=== PATIENT | male | born 1970 | race Caucasian/White ===

== ENCOUNTER 2022-10-01 10:24 | Outpatient (CLI) | payer OTHER, SELFPAY | END 2022-10-01 10:25 | disposition home or self-care (01) | LOC: NFLDREF 10-02 12:27 | PROVIDERS: PCP Physician Assistant Medical; Visit Provider Physician Assistant Medical | DX: Z00.00 Encounter for general adult medical examination without abnormal findings (principal); I10 Essential (primary) hypertension; E66.9 Obesity, unspecified; M10.9 Gout, unspecified; Z13.29 Encounter for screening for other suspected endocrine disorder; Z12.5 Encounter for screening for malignant neoplasm of prostate; Z13.0 Encounter for screening for diseases of the blood and blood-forming organs and certain disorders involving the immune mechanism; Z13.1 Encounter for screening for diabetes mellitus | CPT/HCPCS: 80053; 80061; 84153; 84443 ==

== ENCOUNTER 2023-12-23 10:02 | Emergency (ER) | payer OTHER, SELFPAY ==
[2023-12-23 10:08] VITALS: BP 190/125; PULSE 103; RESP 18; TEMP 36.2; O2SAT 96; BMI 40.9
--- NOTE | 2023-12-23 11:03 | ED_ITS ---
HPI - General Adult General Date Seen: 12/23/23 Chief complaint: Abdominal Pain Stated complaint: c/o diverticulitis, high bp, sent from Time Seen by Provider: 12/23/23 11:01 History of Present Illness HPI narrative: 53-year-old male with a history of gout, hypertension, elevated BMI, history of DVT who was referred to the ER from the urgent care today for abdominal pain. He has a history of diverticulitis and was treated outpatient IV antibiotics about 3 or 4 years ago years ago. Per note from Urgent Care he was seen last year with left lower abdominal pain and was started empirically on Cipro and Flagyl for diverticulitis. He reports that his last serious bout of diverticulitis was maybe about 4 years ago. Since then he has had flares of lower abdominal pain maybe 3 or 4 times per year. He typically does not come to the doctor for them and they get better on their own. His current bout of abdominal pain will come up from sleep at about 3:00 a.m. this morning. It is present in both lower quadrants of his abdomen but more were worse on the left. It comes and goes in waves. It is associated with sweats and chills but no objectively measured fever. No nausea or vomiting. No cough. No shortness of breath. No chest pain. He has had some mucousy stool but no bloody stool. Symptoms are similar to his previous bouts of diverticulitis. He went to the urgent care and they referred him here to the ER for evaluation. The urgent care provider was worried about his blood pressure being elevated it was about 200/110. However he is in pain. He is not having any chest pain, shortness of breath, lower extremity swelling, or urinary symptoms . Related Data Previous Rx's ?Medication ?Instructions ?Recorded indomethacin 50 mg capsule 50 mg PO TID #30 caps 04/26/22 amlodipine 5 mg tablet 5 mg PO QDAY #90 tabs 10/01/22 hydrochlorothiazide 25 mg tablet 25 mg PO QDAY #90 tabs 10/01/22 losartan 100 mg tablet 100 mg PO QDAY #90 tabs 10/01/22 amoxicillin 875 mg-potassium 1 tab PO Q8H #14 tabs 12/23/23 clavulanate 125 mg tablet hydrocodone 5 mg-acetaminophen 325 1 tab PO Q4H PRN pain #14 tabs 12/23/23 mg tablet Allergies Allergy/AdvReac Type Severity Reaction Status Date / Time No Known Allergies Allergy Verified 12/23/23 12:16 PFSH PFS Medical History (Updated 12/23/23 @ 13:05 by Teja Salomon MD) Diverticulitis ?K57.92 - Diverticulitis of intestine, part unspecified, without perforation or abscess without bleeding (ICD-10) Difficulty sleeping ?G47.9 - Sleep disorder, unspecified (ICD-10) Calculus of kidney (2020) ?N20.0 - Calculus of kidney (ICD-10) Surgical History (Updated 10/01/22 @ 10:14 by Ashley Matta PA-C) History of ankle surgery ?Z98.890 - Other specified postprocedural states (ICD-10) Hx of cholecystectomy ?Z90.49 - Acquired absence of other specified parts of digestive tract (ICD- 10) History of lithotripsy ?Z98.890 - Other specified postprocedural states (ICD-10) History of laparoscopic adjustable gastric banding ?Z98.84 - Bariatric surgery status (ICD-10) History of arthroscopic knee surgery ?Z98.890 - Other specified postprocedural states (ICD-10) Family History (Updated 10/01/22 @ 10:08 by Ashley Matta PA-C) Brother Hodgkin disease, Onset Age: 30 Father High blood pressure Aortic dissection, thoracic, Onset Age: 89 Kidney disease Mother High blood pressure Aunt Lung cancer Social History (Updated 10/01/22 @ 10:09 by Ashley Matta PA-C) Narrative: - 3 kids (21 yo, 19 yo, 17 yo) Non-tobacco user Alcohol: Not daily; occasional use Denies recreational drugs Smoking Status: Never smoker Do you use any of these nicotine containing products: None Second hand tobacco smoke exposure: No How often do you have a drink containing alcohol: monthly or less How many standard drinks containing alcohol do you have on a typical day: 1 or 2 How often do you have six or more drinks on one occasion: Never AUDIT-C Alcohol total score: 1 Non-prescribed substance use: denies use Little interest or pleasure in doing things: not at all Feeling down, depressed, or hopeless: not at all service: No Exam Const: Vital Signs, click to edit/add: Vital Signs - 24 hr 12/23/23 10:08 Temperature 97.2 F L Pulse Rate [Pulse Oximeter] 103 H Respiratory Rate 18 Blood Pressure [Le ft Upper Arm] 190/125 H Pulse Oximetry 96 Oxygen Delivery Me thod Room Air Course Vital Signs Vital signs: Initial Vital Signs Temperature 97.2 F L 12/23/23 10:08 Temperature Source Temporal Artery Scan 12/23/23 10:08 Pulse Rate 103 H 12/23/23 10:08 Pulse Rhythm Regular 12/23/23 10:08 Respiratory Rate 18 12/23/23 10:08 Blood Pressure 190/125 H 12/23/23 10:08 Blood Pressure Mean 146 H 12/23/23 10:08 Blood Pressure Position Supine 12/23/23 10:08 Pulse Oximetry 96 12/23/23 10:08 Oxygen Delivery Method Room Air 12/23/23 10:08 Vital Signs Temperature 97.2 F L 12/23/23 10:08 Pulse Rate 103 H 12/23/23 10:08 Respiratory Rate 18 12/23/23 10:08 Blood Pressure 190/125 H 12/23/23 10:08 Pulse Oximetry 96 12/23/23 10:08 Oxygen Delivery Method Room Air 12/23/23 10:08 Temperature 97.2 F L 12/23/23 10:08 Pulse Rate 103 H 12/23/23 10:08 Respiratory Rate 18 12/23/23 10:08 Blood Pressure 190/125 H 12/23/23 10:08 Pulse Oximetry 96 12/23/23 10:08 Oxygen Delivery Method Room Air 12/23/23 10:08 Medical Decision Making [facility] Narrative Medical decision making narrative: Presented to the Emergency Department with bilateral lower quadrant, more on the left abdominal pain that began overnight last night, about 8 hours prior to presentation. The differential diagnosis of abdominal pain includes: Appendicitis, Bowel Obstruction, Ulcer, Ischemia, Cholecystitis, Diverticulitis, Pancreatitis, UTI, kidney stone, Enteritis/Colitis, amongst many other etiologies.Laboratory testing does not reveal a cause for the patient's pain but white count is elevated at about 13.. CT imaging does show evidence for acute uncomplicated sigmoid diverticulitis. Incidentally he has renal cyst and hepatic steatosis discussed with patient. No life threatening cause or need for emergent surgery or hospital admission is detected today. Current recommendations from treatment of acute uncomplicated diverticulitis would be supportive care without antibiotics. Discussed this with the patient. This is a change compared to the treatment which he received about 4 years ago. He is the will try to manage him supportively. Discussed appropriate diet, treating with [id number] pain medications. Prescription for [place] provided for breakthrough pain. However I will give him a prescription for Augmentin. He will start this if he is not improving within next 2-3 days. The patient also understands that if they worsen, they should return to the ER right away. I discussed the uncertainty about the diagnosis and answered the patient's questions. Abdominal pain return precautions discussed. He was also sent to the ER today by urgent care because his blood pressure readings are elevated. This contact I suspect his blood pressure is elevated due to stress and pain. No evidence for hypertensive emergency on his workup. Removed through EKG does show left ventricle hypertrophy. Discussed with the patient and has been previously known for years. He will follow up with his doctor for blood pressure recheck with the and, if necessary, medication optimization . Lab Data Labs: Lab Results 12/23/23 12/23/23 Range/Units 11:32 12:17 WBC 13.40 H (4.50-11.00) K/uL RBC 6.14 H (4.30-5.90) m/uL Hgb 17.6 H (13.5-17.5) gm/dL Hct 53.0 (37.0-53.0) % MCV 86 (80-100) fL MCH 29 (26-34) pg MCHC 33 (32-36) gm/dL RDW Coeff of [place] 14.4 (11.5-15.5) % Plt Count 298 (140-440) K/uL Neut % (Auto) 80.8 H (42.0-72.0) % Lymph % (Auto) 12.3 L (20-44) % [place] % (Auto) 5.8 (0.0-11.0) % Eos % (Auto) 0.6 (0.0-7.0) % Baso % (Auto) 0.3 (0.0-3.0) % Neut # (Auto) 10.80 H (1.7-7.0) K/uL Lymph # (Auto) 1.60 (0.90-2.90) K/uL [place] # (Auto) 0.80 (0.00-0.90) K/UL Eos # (Auto) 0.10 (0.00-0.50) K/uL Baso # (Auto) 0.00 (0.00-0.30) K/uL Abs Immat Gran (auto) 0.00 (0.00-0.30) K/uL Imm/Tot Granulo (auto) 0.2 % Sodium 138 (135-149) mmol/L Potassium 3.9 (3.6-5.1) mmol/L Chloride 100 (96-114) mmol/L Carbon Dioxide 26 (20-32) mmol/L Anion Gap 12 (7-15) mEq/L BUN 14 (7-30) mg/dL Creatinine 1.0 (0.5-1.5) mg/dL Estimated Creat Clear 89.22 Estimated GFR 91 ml/min Glucose 117 H (60-115) mg/dL Calcium 10.4 (8.4-10.6) mg/dL Troponin I < 0.01 L (0.01-0.04) ng/mL Urine Color Yellow (Yellow) Urine Appearance Clear (Clear) Urine pH 7.0 (5.0-8.5) Ur Specific [place] 1.020 (1.000-1.030) Urine Protein Trace A (Negative) Urine Glucose (UA) Negative (Negative) Urine Ketones Negative (Negative) Urine Blood Negative (Negative) Urine Nitrite Negative (Negative) Urine Bilirubin Negative (Negative) Urine Urobilinogen 0.2 (0.2-1.0) Ur Leukocyte Esterase Negative (Negative) Urine RBC 0-2 (0-2) Urine WBC 0-2 (0-5) Ur Squamous Epith Cells None (None-Few) Urine Bacteria None (None) Imaging Data CT scan - abdomen: Attestation: I have reviewed the pertinent imaging results. My impression: Sigmoid diverticulitis. I do not see any perforations. Looks like he has renal cysts. Radiologist's impression: IMPRESSION: 1. Acute diverticulitis sigmoid colon without evidence of abscess. 2. Mild hepatic steatosis. ECG Data Attestation: I personally reviewed and interpreted this ECG as follows: Interpretation: Normal sinus rhythm Rate: 86 NM: 198 QRS axis: Left axis deviation. Left ventricular hypertrophy by voltage criteria ST segment/T wave: No ST segment elevation or depression. QTc: 437 Discharge Plan Discharge Clinical Impression: Diverticulitis, Hypertension, LVH (left ventricular hypertrophy), Fatty liver Patient Disposition: Home, Self-Care Instructions: Diverticulitis (ED), Hypertension (ED) Additional Instructions: As we discussed, if you have a severe worsening symptoms, high fever, bloody stools or other worsening symptoms come back to the ER right away to be rechecked. Recent signs diff studies have shown that many cases of diverticulitis will get better with supportive care and without antibiotics. Please start taking the antibiotics if your not improving after the next 2-3 days. But remember if you get worse, come back to the ER to be recheck Use [id number] pain medications as needed for pain. If you have pain on canal neural by those medications, you can take the prescription pain killer, [place]. Use caution with [place] because it causes dizziness, drowsiness, constipation, and can be addictive. Please follow-up with your regular doctor for a blood pressure check within the next 2-3 weeks Prescriptions: New hydrocodone-acetaminophen 5-325 mg tablet 1 tab PO Q4H PRN (Reason: pain) Qty: 14 0RF amoxicillin-pot clavulanate 875-125 mg tablet 1 tab PO Q8H Qty: 14 0RF No Action indomethacin 50 mg capsule 50 mg PO TID Qty: 30 0RF Rx Instructions: administer with food or milk. Take one pill three times daily as needed for pain/swelling due to gout amlodipine 5 mg tablet 5 mg PO QDAY Qty: 90 3RF Rx Instructions: once daily for blood pressure hydrochlorothiazide 25 mg tablet 25 mg PO QDAY Qty: 90 3RF losartan 100 mg tablet 100 mg PO QDAY Qty: 90 3RF Follow Up/Referrals: Ashley Matta PA-C [Primary Care Provider] - Stand Alone Forms: [employer] Info Instructions
--- NOTE | 2023-12-23 11:20 | CRLHL7_ITS ---
For Patients: As a result of the Century Cures Act, medical imaging exams and procedure reports are released immediately into your electronic medical record. You may view this report before your referring provider. If you have questions, please contact your health care provider. INDICATION: Abdominal pain, mucus in stool TECHNIQUE: Axial images were obtained from the diaphragm to the pubic symphysis. Reformats were obtained in the coronal and sagittal plane. IV Contrast: 139 cc Isovue 370 Oral Contrast: None COMPARISON: Abdomen and pelvis CT 03/06/2021 FINDINGS: Lower chest: Unremarkable. Liver: Normal in contour with diffusely decreased density of the liver without focal intrahepatic lesion. Gallbladder and bile ducts: Status post cholecystectomy. Spleen: Unremarkable. Normal in size without mass. Pancreas: Unremarkable. No mass or inflammation. Adrenal glands: Unremarkable. No nodules. Kidneys: Symmetric renal enhancement without hydronephrosis. Bilateral renal cysts redemonstrated, largest on the left measuring 4.3 centimeters and on the right measuring 3.8 centimeters Vasculature: Unremarkable. GI tract: Status post gastric lap band. The stomach is decompressed. No dilated loops of large or small intestine. Normal appendix. Colonic diverticulosis with focal inflammation adjacent to the mid sigmoid with adjacent fascial thickening and trace free fluid. No discrete abscess. Pelvis: Status post anterior pelvic mesh. Bones: Right sacroiliac osteoarthritis. IMPRESSION: 1. Acute diverticulitis sigmoid colon without evidence of abscess. 2. Mild hepatic steatosis. Please note that all CT scans at this facility use dose modulation, iterative reconstruction, and/or weight-based dosing when appropriate to reduce radiation dose to as low as reasonably achievable. Dictated by Alex Noel MD @ 12/23/2023 12:40:42 PM (Electronically Signed)
[2023-12-23 11:44] LABS: Basophils Percent Auto 0.3 % (0.0-3.0); Eosinophils Percent Auto 0.6 % (0.0-7.0); Hemoglobin* 17.6 gm/dL (13.5-17.5); Immature Granulocytes Pct Auto 0.2 %; Lymphocytes Percent Auto 12.3 % (20-44); Mean Corpuscular HGB Conc 33 gm/dL (32-36); Mean Corpuscular Hemoglobin 29 pg (26-34); Mean Corpuscular Volume 86 fL (80-100); Monocytes Percent Auto 5.8 % (0.0-11.0); Neutrophils Percent Auto 80.8 % (42.0-72.0); Platelet Count* 298 K/uL (140-440); RDW Coefficient of Variation % 14.4 % (11.5-15.5); Red Blood Count 6.14 m/uL (4.30-5.90)
[2023-12-23 11:45] LABS: Slide Review Reflex No
[2023-12-23 11:58] LABS: Chloride* 100 mmol/L (96-114); Sodium* 138 mmol/L (135-149)
[2023-12-23 11:59] LABS: Potassium* 3.9 mmol/L (3.6-5.1)
[2023-12-23 12:01] LABS: Est. Creatinine Clearance* 89.22; Estimated Glomerular Filt Rate 91 ml/min
[2023-12-23 12:02] LABS: Anion Gap 12 mEq/L (7-15); Blood Urea Nitrogen* 14 mg/dL (7-30); Calcium* 10.4 mg/dL (8.4-10.6); Carbon Dioxide* 26 mmol/L (20-32); Glucose* 117 mg/dL (60-115)
[2023-12-23 12:17] LABS: Troponin I* < 0.01 ng/mL (0.01-0.04)
[2023-12-23 12:21] LABS: Appearance Urine Clear (Clear); Bilirubin Urine Negative (Negative); Blood Urine Negative (Negative); Color Urine Yellow (Yellow); Glucose Urine Negative (Negative); Ketones Urine Negative (Negative); Leukocyte Esterase Urine Negative (Negative); Nitrite Urine Negative (Negative); Protein Urine Trace (Negative); Urobilinogen Urine 0.2 (0.2-1.0)
[2023-12-23 12:27] LABS: RBC Urine 0-2 (0-2); WBC Urine 0-2 (0-5)
== END 2023-12-23 13:20 | disposition home or self-care (01) ==
PROVIDERS: Emergency Provider Emergency Medicine; PCP Physician Assistant Medical
DX: K57.92 Diverticulitis of intestine, part unspecified, without perforation or abscess without bleeding (principal); I10 Essential (primary) hypertension; I51.7 Cardiomegaly; K76.0 Fatty (change of) liver, not elsewhere classified
CPT/HCPCS: 36415; 74177; 80048; 81001; 84484; 85025; 93005; 99283; 99284; 99285; Q9967